=== PATIENT | female | born 1945 | race Caucasian/White ===

== ENCOUNTER 2020-06-07 15:23 | Observation (INO) | payer MEDICARE, BC ==
[~2020-06-07] VITALS: Ht 160 cm; Wt 63.5 kg
[2020-06-07] MEDS ORDERED: ASPIRIN 81 MG CHEW TAB PO ONE (15:30)
--- NOTE | 2020-06-07 15:48 | Emergency Department Note ---
History of Present Illnes History of Present Illness History of Present Illness This is a 74 year old female . Past Medical/Family History Physician Review I have reviewed the patient's past medical and family history. Any updates have been documented here. Physical Exam Physical Exam CONSTITUTIONAL HENT EYES NECK PULMONARY CARDIOVASCULAR GASTROINTESTINAL GENITOURINARY SKIN MUSCULOSKELETAL NEUROLOGICAL PSYCHOLOGICAL Assessment & Plan Medications in the ED Aspirin 81 mg PRN ONCE PO ; Start 06/07/20 at 15:30; Stop 06/07/20 at 15:33; Status DC CHARLES PURDY, Jun 07, 2020 15:48
--- NOTE | 2020-06-07 16:01 | Diagnostic Imaging Report ---
Examination: CT BRAIN WO CONTRAST History:Stroke. Comparison studies:None Technique: Axial images were obtained from the skull base to the vertex. Coronal and sagittal images reconstructed from the axial data. Dose modulation, iterative reconstruction, and/or weight based adjustment of the mA/kV was utilized to reduce the radiation dose to as low as reasonably achievable. Intravenous contrast: None Findings: Scalp: No abnormalities. Bones: No fractures, blastic or lytic lesions. Brain sulci: Appropriate for age. Ventricles: Normal in size and configuration. No hydrocephalus. Extra-axial space: No abnormalities. Parenchyma: No masses, hemorrhage, or acute or chronic cortical based vascular insults.. Sellar/suprasellar region: No abnormalities. Craniocervical junction: Patent foramen magnum. No Chiari one malformation. Incidental findings: Atherosclerotic calcification of the cavernous and supraclinoid internal carotid and V4 segments of the bilateral vertebral arteries. Impression: No acute intracranial abnormalities. Signed by: Dr. Karma Barnes M.D. on 06/07/2020 3:57 PM
--- OUTSIDE RECORDS SUMMARY | 2020-06-07 16:37 | XMS REPORT | Continuity of Care Document ---
Author Author [facility] Organization [facility] Address 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 Allergies, Adverse Reactions, Alerts Allergy Name Allergy Type Status Severity Reaction(s) Onset Date Inacti ve Date Treating Clinician Comments Source Penicillins DA Active U 2019-06-04 00:00:00 [facility] iodine DA Active U 2019-06-04 00:00:00 [facility] Penicillins DA Active U 2019-06-03 00:00:00 [facility] iodine DA Active U 2019-06-03 00:00:00 [facility] Penicillins DA Active [place] 2019-01-04 00:00:00 [facility] iodine DA Active [place] 2019-01-04 00:00:00 [facility] Penicillins DA Active U 2010-11-22 00:00:00 [facility] iodine DA Active U 2010-11-22 00:00:00 [facility] Medications This patient has no known medications. Procedures This patient has no known procedures. Results Test Description Test Time Test Comments Results Result Comments Source CT BRAIN WO 2020-06-07 15:53:00 [facility] [address] [address] Patient Name: JATINDER CODY MR #: [id number] : 1945 Age/Sex: 74/F Req #: [id number] Adm Physician: Ordered by: CHARLES PURDY DO Report #: [id number] Location: ER Room/Bed: Procedure: [id number] CT/CT BRAIN WO Exam Date: Exam Time: REPORT STATUS: Signed Examination: CT BRAIN WO CONTRAST History:Stroke. Comparison studies:None Technique: Axial images were obtained from the skull base to the vertex. Coronal and sagittal images reconstructed from the axial data. Dose modulation, iterative reconstruction, and/or weight based adjustment of the mA/kV was utilized to reduce the radiation dose to as low as reasonably achievable. Intravenous contrast: None Findings: Scalp: No abnormalities. Bones: No fractures, blastic or lytic lesions. Brain sulci: Appropriate for age. Ventricles: Normal in size and configuration. No hydrocephalus. Extra-axial space: No abnormalities. Parenchyma: No masses, hemorrhage, or acute or chronic cortical based vascular insults.. Sellar/suprasellar region: No abnormalities. Craniocervical junction: Patent foramen magnum. No Chiari one malformation. Incidental findings: Atherosclerotic calcification of the cavernous and supraclinoid internal carotid and V4 segments of the bilateral vertebral arteries. Impression: No acute intracranial abnormalities. Signed by: Dr. Karma Barnes M.D. on 06/07/2020 3:57 PM Dictated By: KARMA JAMA MD 56 Transcribed By: BOB on 06/07/201556 COPY TO: MAUREENCHARLES CASILLAS, DO - XR FLUORO FOR SPINE INJ 2019-06-05 09:50:00 P atient Name: JATINDER CODY Unit No: [id number] EXAMS: CPT CODE: [id number] XR FLUORO FOR SPINE INJ 34346 LUMBAR EPIRADICULAR INJECTION REFERRAL PHYSICIAN: Miladis Mccormack M.D. PREOPERATIVE DIAGNOSIS: Lumbar Radiculitis POSTOPERATIVE DIAGNOSIS: Lumbar disc degeneration with L3-4 disc displacement, L4-5 grade 1 spondylolisthesis, spinal stenosis and bilateral lower extremity radicular pain PROCEDURES PERFORMED: Fluoroscopically guided needle localization of the bilateral L4 and bilateral L5 spinal nerves with transforaminal epidurograms and epidural injection of local anesthetic and steroid. FINDINGS: Marked loss of disc space height is seen from L3 to S1. Moderate anterior epidural displacement seen across the L3-4 disc and grade 1 spondylolisthesis is seen at L4-5 with minimal disc displacement. Good flow seen through all foramen and across the L4-5 spondylolisthesis. Flow was somewhat limited in the bilateral L3-4 lateral recesses. Provocation with injection was negative. Anesthetic response was positive with the patient noting complete relief of her low back and radiating lower extremity pains. Preinjection VAS 7/10. Postinjection VAS 0/10. Steroid response pending follow-up. ESTIMATED BLOOD LOSS: Minimal ANESTHESIA: TIVA COMPLICATIONS: None DETAILS OF PROCEDURE: After obtaining stable vital signs, informed consent and IV access, with no contraindications, the patient was taken to the operating room and placed in a prone position with all extremities p added and appropriate monitors placed. The patient was sterilely prepped and draped over the lumbosacral spine. Using fluoroscopic visualization the insertion sites were marked for paravertebral approaches and using standard technique, a 25 gauge needle was advanced to the base of each pedicle without paresthesias. Isovue-300 contrast 0.2 mL of was injected incrementally with frequent negative aspirations to produce each epidurogram. There were no signs of intravascular or intrathecal uptake. Bupivicaine 0.75% 0.25 mL with lidocaine 4% 0.25 mL and Decadron 5 mg was then incrementally injected with frequent negative aspirations and again there were no signs of intravascular or intrathecal uptake. The needles were removed and the patient was taken to the PACU in good condition. at 0950 Reported and signed by: Misael Bonilla M.D. [facility] NAME: JATINDER CODY [address] [facility] PHYS: Misael Bell MD [place], [place] [address] : 1945 AGE: 73 SEX: F LOC: [place] PHONE #: [phone] EXAM DATE: 06/04/2019 STATUS: [facility] FAX #: [phone] RAD #: D/C DT PAGE 1 Signed Report (CONTINUED) Patient Name: JATINDER CODY Unit No: [id number] EXAMS: CPT CODE: [id number] XR FLUORO FOR SPINE INJ 73151 <Continued> CC: Technologist: Petrona Jones(R) Transcribed D/ (9176) Rolf [facility] NAME: JATINDER CODY [address] [facility] PHYS: Misael Bell MD [place], [place] [address] : 1945 AGE: 73 SEX: F LOC: [place] PHONE #: [phone] EXAM DATE: 06/04/2019 STATUS: [facility] FAX #: [phone] RAD #: D/C DT PAGE 2 Signed Report Patient Name: JATINDER CODY Unit No: [id number] EXAMS: CPT CODE: [id number] XR FLUORO FOR SPINE INJ 49152 <Continued> Orig Print D/T: S: 06/05/2019 (8586) [facility] NAME: JATINDER CODY [address] [facility] [address] PHYS: Misael Bell MD [place] [id number] : 1945 AGE: 73 SEX: F LOC: [place] PHONE #: [phone] EXAM DATE: 06/04/2019 STATUS: [facility] FAX #: [phone] RAD #: D/C DT PAGE 3 Signed Report - NM BONE WHOLE BODY 2019-05-20 15:14:00 FAX: Ellen RyderksSera [phone] [place]: St: REG FAX: Bryce Prasad [phone] Name: ANA LUISA CODYES [facility] : 1945 Age/S: 73/F [address] [place] [address] Blvd Unit #: [id number] Loc: [place] [address] Phys: Bryce Mccormack MD Acct: [id number] Dis Date: Status: REG CLI PHONE #: [phone] Exam Date: 05/20/2019 1449 FAX #: [phone] Reason: M47.892 LOW BACK PAIN, SPONDYLOSIS EXAMS: CPT CODE: [id number] MT BONE WHOLE BODY 68270 Nuclear medicine whole-body bone scan 05/20/2019 HISTORY: Low back pain PROCEDURE: After the intravenous injection of 25 mCi of technetium 99m HDP, whole body anterior and posterior projection imaging was performed followed by spot images of the spine in multiple planes. No prior bone scans are available for comparison. Comparison is made to MRI performed 05/06/2019. FINDINGS: Physiologic activity within the kidneys and urinary bladder. Mild uptake within the left 1st toe is noted. There is increased activity within the L1 vertebral body. No other area of increased activity is identified. IMPRESSION: 1. Increased activity within L1 vertebral body. This most likely represents an recent (acute or subacute) Schmorl's node. Primary or secondary neoplasm is considered less likely 2. Increased activity within left 1st toe may represent degenerative change or gout. SL: [id number] at 1514 Reported and signed by: Abhijeet Izquierdo M.D. CC: Sera Tobias DO; Ioana Mccormack M.D. Technologist: RT Whit(Wili)([facility]) Trnscrd Date/Time/By: 05/20/2019 (151) : By: [email or web address] Orig Print D/T: S: 05/20/2019 (1515) PAGE 1 Signed Report - MRI L-SPINE W/O CONT 2019-05-07 10:09:00 Tiffanie ent Name: JATINDER CODY Unit No: [id number] EXAMS: CPT CODE: [id number] MRI L-SPINE W/O CONT 20332 MRI OF THE LUMBAR SPINE: DIAGNOSIS: 1. At L1-2, moderate disc degeneration. 2 mm disc bulge. Mild central canal stenosis. Moderate foraminal stenosis. There is a lesion which involves the superior endplate of L1 which was not seen on the previous examination dated October 20, 2016. The lesion is well- circumscribed and there is associated partial cortical disruption of the L1 superior endplate. This is low signal on T1 and T2-weighted sequences and focally high signal on STIR sequence. Findings are suggestive of an acute or subacute Schmorl's node. An atypical metastatic lesion cannot entirely be excluded on this exam. Correlation whole-body nuclear bone scan is recommended. A chronic Schmorl's node is present inferior endplate of L3 which was seen on the previous exam. 2. At L2-3, mild disc degeneration. 2 mm disc bulge. Mild to moderate central canal stenosis. Moderate foraminal stenosis. 3. At L3-4, moderate to marked disc degeneration. Moderate central canal stenosis. Moderate left facet and mild right facet arthropathy. Moderate to marked left foraminal and moderate right foraminal stenosis. 4. At L4-5, marked disc degeneration. Grade 1 spondylolisthesis of L4 and L5. Moderate hypertrophic central canal stenosis. There is marked left facet and moderate to marked right facet arthropathy. Mild to moderate hypertrophy ligamenta flava. Moderate foraminal stenosis. 5. At L5-S1, marked disc degeneration. 2 mm disc bulge. Mild central canal stenosis. Moderate facet arthropathy. Moderate right foraminal mild to moderate left foraminal stenosis. COMMENT: COMPARISON: No prior exams available. Sagittal T1, T2 and STIR and axial T1 and T2-weighted sequences are obtained of the lumbar spine. Findings involving the L1 vertebral body as described. Recommendations are as above. The conus is in the expected location. at 1009 Reported and signed by: María Elena Payton MD CC: Miladis Mccormack M.D. Technologist: Karen Mata(R) Transcribed D/ (1009) CharlesGVG [facility] NAME: JATINDER CODY [address] [facility] PHYS: Bryce Cervantes MD : 1945 AGE: 73 SEX: F [place] [address] LOC: Y.MRI PHONE #: [phone] EXAM DATE: 05/06/2019 STATUS: [facility] CLI FAX #: [phone] RAD #: D/C DT PAGE 1 Signed Report Patient Name: JATINDER CODY Unit No: [id number] EXAMS: CPT CODE: [id number] MRI L-SPINE W/O CONT 28894 <Continued> Orig Print D/T: S: 05/07/2019 (1012) [facility] NAME: JATINDER CODY [address] [facility] PHYS: Bryce Cervantes MD : 1945 AGE: 73 SEX: F [place] [address] LOC: Y.MRI PHONE #: [phone] EXAM DATE: 05/06/2019 STATUS: [facility] CLI FAX #: [phone] RAD #: D/C DT PAGE 2 Signed Report SCR MAMM BILATERAL AYLIN CAD DIGITAL 2019-03-18 10:13:22 - SCR MAMM BILATERAL AYLIN CAD DIGITALBILATERAL DIGITAL SCREENING MAMMOGRAM 3D/2D WITH CAD: 03/15/2019CLINICAL: Asymptomatic. Digital breast tomosynthesis was performed in addition to routine CC and MLO views. Current mammographic images were evaluated by either a Nubisio M-Vu or a BandPage ImageChecker CAD (computer aided detection system). Comparison is made to exams dated 06/30/2009 mammogram, 05/13 mammogram, and 05/28/2007 mammogram - [facility]-. There are scattered fibroglandular tissues in both breasts. There are benign vascular calcifications in both breasts. No suspicious mass, architectural distortion, malignant type calcification, or lymph node abnormality detected. Breast architecture is stable compared to prior exams.IMPRESSION: BENIGNThere is no mammographic evidence of malignancy. Resume annual screening mammography in one year. Julio Batista M.D. 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 At L1-2 there is no evidence for disc bulge or herniation, bony canal or foraminal stenosis. 2. At L2-3 there is no evidence for disc bulge or herniation, bony canal or foraminal stenosis. 3. At L3-4 there is endplate spur formation and 2 mm of broad based disc protrusion with mild bilateral foraminal narrowing. There is mild to moderate canal stenosis with facet hypertrophy. 4. At L4-5 there is a degenerative grade 1 spondylolisthesis without a focal disc abnormality. There is moderate bilateral foraminal narrowing and moderate canal stenosis with facet hypertrophy. 5. At L5-S1 there is 6 mm of extruded right posterior lateral disc herniation impinging on the right S1 nerve root. No canal stenosis is seen. Mild bilateral foraminal narrowing is present. COMMENT: Scans were performed in the sagittal and axial planes utilizing T1, T2 and inversion recovery images. Endplate degenerative changes are seen from L2 to S1. All discs are degenerated. Disc configurations are as described. Spondylitic changes are as noted. The conus is in the expected location. The description these findings assumes a normal count of 5 lumbar type vertebra. at 1534 Reported and signed by: Jhonny Zhang MD CC: Miladis Mccormack M.D. Technologist: Karen Pepe(R) Transcribed D/ (2924) tSILVIANO.[facility] NAME: ANA LUISA CODY [address] [facility] PHYS: Bryce Cervantes MD : 1945 AGE: 65 SEX: F [place] [address] LOC: [facility] PHONE #: [phone] EXAM DATE: 11/22/2010 STATUS: [facility] FAX #: [phone] RAD #: [id number] D/C DT PAGE 1 Signed Report Patient Name: ANA LUISA CODY Unit No: [id number] EXAMS: CPT CODE: [id number] MRI L-SPINE W/O CONT 14484 <Continued> Orig Print D/T: S: 11/25/2010 (1123) [facility] NAME: ANA LUISA CODY [address] [facility] PHYS: Bryce Cervantes MD : 1945 AGE: 65 SEX: F [place] [address] LOC: [facility] PHONE #: [phone] EXAM DATE: 11/22/2010 STATUS: [facility] FAX #: [phone] RAD #: [id number] D/C DT PAGE 2 Signed Report - XR CHEST 1 V 2009-08-10 18:35:00 FAX: Rosenda Maharaj MD [phone] [place]: B St: SAMIRK -- Name: ANA LUISA CODY [facility] : 1945 Age/S: 63/F Freddie Casas Unit #: [id number] Loc: [facility] [place] [address] Phys: Rosenda Maharaj MD Acct: [id number] Dis Date: Status: UNK PHONE #: [phone] Exam Date: 08/10/2009 1415 FAX #: [phone] Reason: BILATERAL SHOULDER ACHING AND BP IS ELEV EXAMS: CPT CODE: [id number] XR CHEST 1 V 89558 Portable chest compared to exam 04/17/2008. Grossly clear mildly hyperinflated lungs and pleural spaces. Borderline normal heart size. Mild aortic ectas ia. Unremarkable bony thorax. IMPRESSION: No acute cardiopulmonary pathology. at 1835 Reported and signed by: Vikash Young M.D. CC: Rosenda Maharaj MD Technologist: Tomeka Juarez [facility] Date/Time/By: 08/10/2009 (183) : By: [email or web address] Orig Print D/T: S: 08/10/2009 (183) PAGE 1 Signed Report - CT CHEST W/O CONTRAST 2009-08-10 14:53:00 Na me: ANA LUISA CODY [facility] : 1945 Age/S: 63 / F Freddie Casas Unit #: [id number] Loc: [place] [address] Phys: Rosenda Maharaj MD Acct: [id number] Dis Date: Status: UNK PHONE #: [phone] Exam Date: 08/10/2009 1405 FAX #: [phone] Reason: BP ELVATED/SHOULDER PAIN EXAMS: CPT CODE: [id number] CT CHEST W/O CONTRAST 05051 HISTORY: Hypertension, shoulder pain. FINDINGS: Biapical mild scarring greater on the right. No acute infiltrate, pneumothorax, or pleural effusion. Coronary artery and aortic atherosclerosis without focal aneurysm. No appreciable adenopathy or pericardial effusion; evaluation limited by lack of intravenous enhancement. Small hiatus hernia. Otherwise grossly unremarkable upper abdomen. Degenerative changes in the spine. Right thyroid calcification noted. IMPRESSION: 1. No acute intra thoracic pathology, evaluation limited by lack of enhancement. 2. Coronary and aortic atherosclerosis. 3. Small hiatus hernia. at 1456 Reported and signed by: Vikash Young M.D. CC: Rosenda Maharaj MD Technologist:RANJAN KWON(R)(CT); W CTDI: DLP: Trnscb Date/Time: 08/10/2009 (0866) [email or web address] Orig Print D/T: S: 08/10/2009 (8904) PAGE 1 Signed Report - XR ABDOMEN AP/OBL/CONE 2008-04-21 14:04:00 N paulo: ANA LUISA CODY [facility] : 1945 Age/S:62 /F [address] [facility] Unit#:[id number] Loc: [place] [address] Phys: Makayla Byrd MD Dis Date: PHONE #: [phone] Status: [facility] FAX #: [phone] Exam Date: 04/21/2008 Reason: ABD PAIN EXAMS: CPT CODE: [id number] XR ABDOMEN AP/OBL/CONE 88064 COMPARISON: 04/17/2008 FINDINGS: Nonspecific intestinal gas pattern. No organomegaly or mass. Bilateral pelvic calcifications consistent with phleboliths are unchanged. IMPRESSION: No acute abdominal findings . at 1406 Reported and signed by: Vikash Young M.D. CC: Makayla Byrd Technologist: Bia Chang RT(R),CT Trnscrpt Data: 04/21/2008 (1406) RAD.VR Orig Print D/T: S: 04/21/2008 (0050) PAGE 1 Signed Report - US ABDOMEN COMPLETE 2008-04-21 09:11:00 Name : ANA LUISA CODY [facility] : 1945 Age/S: 62 / F [address] [facility] Unit #: [id number] Loc: [place] [address] Phys: Makayla Byrd MD Acct: [id number] Dis Date: Status: UNK PHONE #: [phone] Exam Date: 04/21/200822 FAX #: [phone] Reason: ABDOMINAL PAIN EXAMS: CPT CODE: [id number] US ABDOMEN COMPLETE 11241 Reason for exam: Abdominal pain FINDINGS: The liver is unremarkable. There is no evidence of focal mass identified. The pancreas is within normal limits. The right kidney measures 10.9 x 4.4 cm. The left kidney measures 11.3 x 5.3 cm. There is no evidence of hydronephrosis. There is no evidence of nephrolithiasis. There is no evidence of renal mass. The spleen measures 10.6 cm. The gallbladder is well-distended without evidence of gallstone. The common bile duct measures 0.3 cm. There is no evidence of ascites. IMPRESSION: NORMAL ABDOMEN. at 0913 Reported and signed by: Jose Jesus M.D. CC: Makayla Byrd Technologist: CHUCKY ROSALES Trnksb Date/Time: 04/21/2008 (0913) RAD.VR Orig Print D/T: S: 04/21/2008 (0914) Probe: PAGE 1 Signed Report - XR ABDOMEN AP/OBL/CONE 2008-04-17 15:13:00 N paulo: ANA LUISA CODY [facility] : 1945 Age/S:62 /F [address] [facility] Unit#:[id number] Loc: [place] [address] Phys: Makayla Byrd MD Dis Date: PHONE #: [phone] Status: UNK FAX #: [phone] Exam Date: 04/17/2008 Reason: EPIGASTRIC ABDOMINAL PAIN EXAMS: CPT CODE: [id number] XR ABDOMEN AP/OBL/CONE 33406 The intestinal gas pattern is normal. Nonspecific pelvic calcifications are probably phleboliths. No organomegaly or mass or free air is present. Visualized lung bases are grossly clear. IMPRESSION: No acute abdominal findings. at 1514 Reported and signed by: Vikash Young M.D. CC: Makayla Byrd Technologist: Rachel Valentin RT(R),CT Trnscrpt Data: 04/17/2008 (2304) RAD.VR Orig Print D/T: S: 04/17/2008 (3268) PAGE 1 Signed Report - XR CHEST 2 V 2008-04-17 15:12:00 Name: ANA LUISA SINGH [facility] : 1945 Age/S:62 /F [address] [facility] Unit#:[id number] Loc: [facility] [address] Phys: Makayla Byrd MD Dis Date: PHONE #: [phone] Status: UNK FAX #: [phone] Exam Date: 04/17/2008 Reason: EPIGASTRIC ABDOMINAL PAIN EXAMS: CPT CODE: [id number] XR CHEST 2 V 17390 COMPARISON: none FINDINGS: Lungs and pleural spaces are grossly clear but mildly hyperinflated. Cardiomediastinal silhouette is within normal limits. Unremarkable bony thorax. IMPRESSION: Hyperinflated lungs. at 1512 Reported and signed by: Vikash Young M.D. CC: Makayla Byrd Technologist: Rachel Valentin RT(R),CT Trnscrpt Data: 04/17/2008 (2972) RAD.VR Orig Print D/T: S: 04/17/2008 (2358) PAGE 1 Signed Report - MRI UP JNT W/O CONT LT 2007-12-07 16:48:00 Pa [place] Name: ANA LUISA CODY Unit No: [id number] EXAMS: CPT CODE: [id number] [place] JNT W/[place] [address] MRI OF THE LEFT SHOULDER, 12/07/2007: DIAGNOSIS: 1. There is a complete or near complete full thickness tear of the supraspinatus tendon with 1.5 cm of retraction. No muscle belly atrophy. 2. Partial thickness tear of the infraspinatus tendon. 3. 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 4. Abnormal linear signal is seen within the supraspinatus tendon. The findings are suggestive of a SLAP tear of the superior labrum. Please correlate with the clinical examination. This may be further evaluated with MRI post arthrography if clinically warranted. COMMENT: Paracoronal T1 and fat saturation T2, parasagittal T2, axial T1 and fat saturation spin density sequences are obtained of the left shoulder. Supraspinatus tendon tear as described above. Subtle partial thickness tear of the infraspinatus te ndon. The subscapularis and teres minor tendons are within normal limits. 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 The findings suggest a SLAP tear of the superior labrum. The biceps tendon is intact. The bony structures are within normal limits in signal. There is a physiologic amount of fluid seen within the joint space. [id number] at 1239 Reported by: Anil Payton MD Signed by: María Elena Payton MD CC: Toney James MD Technologist: Karen Pepe(R) Transcribed D/ (0914) Anastasia.NIURKA [facility] NAME: ANA LUISA CODY [address] [facility] PHYS: TERELLWTSteve - Toney James : 1945 AGE: 62 SEX: F [place], [place] [address] LOC: UNK PHONE #: [phone] EXAM DATE: 12/07/2007 STATUS: UNK FAX #: [phone] RAD #: [id number] D/C DT PAGE 1 Signed Report Patient Name: ANA LUISA CODY Unit No: [id number] EXAMS: CPT CODE: [id number] [place] JNT W/[place] [address] <Continued> Orig Print D/T: S: 12/11/2007 (0530) [facility] NAME: ANA LUISA CODY [address] [facility] PHYS: Toney Menjivar : 1945 AGE: 62 SEX: F [place], [place] [address] LOC: [facility] PHONE #: [phone] EXAM DATE: 12/07/2007 STATUS: [facility] FAX #: [phone] RAD #: [id number] D/C DT PAGE 2 Signed Report - MAMMOGM [facility] BI 2004-07-17 09:27:00 FAX: Makayla Gutierrez MD [phone] [place]: St: [facility] FAX: Raymundo Gorman MD [phone] Name: ANA LUISA CODY [facility] : 1945 Age[facility]S: 58/[facility] #: [id number] Loc: [place] [address] Phys: Raymundo Madrigal MD Acct: [id number] Dis Date: Status: UNK PHONE #: [phone] Exam Date: 07/16/2004 1220 FAX #: [phone] Reason: ILATERAL EXAMS: CPT CODE: [id number] [place] [address] DICTATED: 07/17/04926 HISTORY: BILATERAL FILM SCREEN MAMMOGRAPHY, 07/16/04: Bilateral film screen mammography compared to examination of 01/29/03, 12/10/01 and 07/24/00. Bilateral film screen mammography demonstrating mixed dense fatty fibroglandular tissue unchanged in pattern going back to the examination of 1999. No spiculated masses, clustered group of microcalcifications or asymmetric density is noted. No skin thickening or nipple retraction is noted. IMPRESSION: 1. NO SPICULATED MASSES, CLUSTERED GROUP OF MICROCALCIFICATIONS OR ASYMMETRIC DENSITIES. 2. ROUTINE ONE YEAR FOLLOW-UP IS RECOMMENDED. NOTE: 1. A negative x-ray report should not delay biopsy if a dominant or clinically suspicious palpable mass is present. 2. Dense breasts may obscure an underlying neoplasm. 3. False/positive reports may exceed 10%. Result Code: Bi-Rads 3 Follow-up: 12 months /4353 at 1031 Reported and signed by: Noel Pineda M.D. CC: Makayla Byrd; Raymundo Madrigal MD Technologist: RT SEBASTIÁN(Wili)(M) Trnscrd Date/Time/By: 07/17/2004 (8340) : By: Anastasia.[email or web address] Orig Print D/T: S: 07/19/2004 (4464) PAGE 1 Signed Report - [facility] 2003-01-30 12:52:00 FAX: Raymundo Gorman MD [phone] [place]: St: [facility] -- Name: ANAL U[facility] : 1945 Age/S: 57/F [address] [facility] Unit #: [id number] Loc: [place] [address] Phys: Raymundo Madrigal MD Acct: [id number] Dis Date: Status: UNK PHONE #: [phone] Exam Date: 01/29/2003924 FAX #: [phone] Reason: ILATERAL EXAMS: CPT CODE: [id number] [facility] [id number] DICTATED: 01/30/03, 1252 HISTORY: BILATERAL FILM SCREEN MAMMOGRAPHY, 01/29/03: Bilateral film screen mammography compared to exam ination of 12/10/01 and 07/24/00 as well as 05/04/99. Bilateral film screen mammography demonstrating mixed fatty and fibroglandular tissue unchanged in pattern when compared to the previous three studies. No spiculated masses, clustered group of microcalcifications or asymmetric densities are noted. No skin thickening or nipple retraction is noted. IMPRESSION: 1. NO SPICULATED MASSES, CLUSTERED GROUP OF MICROCALCIFICATIONS OR ASYMMETRIC DENSITIES. 2. ROUTINE ONE YEAR FOLLOW-UP IS RECOMMENDED. NOTE: 1. A negative x-ray report should not delay biopsy if a dominant or clinically suspicious palpable mass is present. 2. Dense breasts may obscure an underlying neoplasm. 3. False/positive reports may exceed 10%. Result Code: Bi-Rads 3 Follow-up: 12 months /69827 at 1433 Reported and signed by: Noel Pineda M.D. CC: Raymundo Madrigal MD Technologist: RT SEBASTIÁN(Wili)(M) [facility] Date/Time/By: 01/30/2003 (1409) : By: [email or web address] Orig Print D/T: (3015) S: 01/31/2003 (2931) PAGE 1 [facility] 2001-12-25 14:23:00 FAX: Raymundo Gorman MD [phone] [place]: St: [facility] -- Name: [facility] : 1945 Age/S: 56/F [address] Unit #: [id number] Loc: [place] [address] Phys: Raymundo Madrigal MD Acct: [id number] Dis Date: Status: UNK PHONE #: [phone] Exam Date: 12/25/2001 1423 FAX #: [phone] Reason: L EXAMS: CPT CODE: [id number] [facility] DICTATED: 12/25/01: 1503 HOURS HISTORY: LEFT BREAST CALCIFICATIONS LEFT UNILATERAL CONE COMPRESSION MAMMOGRAM, 12/25/01: CPT 51792 Magnification cone compression images of the left breast were obtained for further evaluation of clustered microcalcifications in the lateral subareolar region on screening mammography performed 01/09/02. These calcifications are very smooth in contour and uniform in size and shape with no associated mass or architectural distortion. IMPRESSION: BENIGN-APPEARING CALCIFICATIONS IN THE LEFT BREAST. NO FURTHER EVALUATION RECOMMENDED AT THIS TIME. A SCREENING MAMMOGRAPHY SCHEDULE SHOULD BE RESUMED. Result Code: Bi-Rads 2 Follow-up: 12 months WC/cw/81557 at 0925 Reported and signed by: Vikash Young M.D. CC: Raymundo Madrigal MD Technologist: RT SEBASTIÁN(Wili)(M) Trnscrd Date/Time/By: 12/26/2001 (0710) : By: RACHELE/[email or web address] PAGE 1 Signed [facility] 2001-12-10 11:16:00 FAX: [place]: St: [facility] FAX: Makayla Gutierrez MD [phone] Name: [facility] : 1945 Age/S: 56/F [address] Unit #: [id number] Loc: [place] [address] Phys: RAYMUNDO MARTI Acct: [id number] Dis Date: Status: UNK PHONE #: [phone] Exam Date: 12/10/2001 1116 FAX #: [phone] Reason: EXAMS: CPT CODE: [id number] [place] [id number] DICTATED: 12/11/01; 1620 HOURS HISTORY: SCREENING MAMMOGRAM BILATERAL FILM SCREEN MAMMOGRAM, 12/10/01 (COMPARISON IS MADE TO EXAMS DONE ON 07/24/00, 05/04/99, 05/11/98): 1. Moderate diffuse fibroglandular changes and adenosis bilaterally without discrete, dominant mass in either breast. 2. Evidence of multiple clustered microcalcifications in the upper outer quadrant of the left breast near the retroareolar region which has slightly increased in number during the time interval and should undergo cone compression views for further characterization. CONCLUSION: MULTIPLE CLUSTERED MICROCALCIFICATIONS IN THE UPPER OUTER QUADRANT OF THE LEFT BREAST NEAR THE RETROAREOLAR REGION WHICH HAVE INCREASED IN NUMBER DURING THE TIME INTERVAL AND SHOULD UNDERGO CONE COMPRESSION VIEWS FOR FURTHER CHARACTERIZATION. NOTE: 1. A negative x-ray report should not delay biopsy if a dominant or clinically suspicious palpable mass is present. 2. Dense breasts may obscure an underlying neoplasm. 3. False/positive reports may exceed 10%. Result Code: Bi-Rads 0 Follow-up: JORGE PUGH/erum/33436 at 1701 Reported and signed by: Elizabeth Yousif M.D. CC: Makayla Matos Technologist: RT SEBASTIÁN(Wili)(Mey) Trnscrd Date/Time/By: 12/12/2001 (1524) : By: RACHELE/Mirian PAGE 1 Signed Report MRI BRAIN WO [place] [address] Patient Name: JATINDER CODY MR #: [id number] : 1945 Age/Sex: 72/F Req #: [id number] Adm Physician: Ordered by: SERA TOBIAS DO Report #: [id number] Location: [facility] Room/Bed: Procedure: [id number] MRI/MRI BRAIN WO Exam Date: Exam Time: REPORT STATUS: Signed EXAMINATION: MRI of the brain without contrast. HISTORY: Acute onset headaches COMPARISON: Brain MRI on 04/02/2012 TECHNIQUE: Sagittal T2; axial DWI, T2, FLAIR, T1-IR, T2 gradient echo; coronal FLAIR. IMAGE QUALITY: Adequate. FINDINGS: Parenchyma: 1. Few scattered white matter T2 and FLAIR hyperintense foci, most likely nonspecific chronic microvascular ischemic changes. 2. Small about 2 mm DWI hyperintense focus in the right middle frontal gyrus without ADC correlation likely corresponds to a small chronic lacunar infarct. Otherwise no abnormal signal intensity in the brain parenchyma. 3. No mass, hemorrhage, acute or chronic infarcts. Skull: Unremarkable. Vessels: Expected flow voids present in the major arteries and dural sinuses. Extra-axial spaces: No abnormal signa l intensity or mass effect. Brain volume: Within normal limits for age. Ventricles: No hydrocephalus or displacement. Foramen magnum: Unremarkable. Sella: Unremarkable. Paranasal / mastoid sinuses: No significant inflammatory disease. IMPRESSION: 1. No intracranial mass, hydrocephalus or acute infarct. 2. Mild chronic microvascular ischemic changes as detailed above. Signed by: Dr. Yessica Rodriguez M.D. on 03/02/2018 3:57 PM Dictated By: YESSICA RODRIGUEZ MD 1793 Transcribed By: BOB on 03/02/18 7898 COPY TO: SERA TOBIAS DO
--- OUTSIDE RECORDS SUMMARY | 2020-06-07 16:44 | XMS REPORT | Continuity of Care Document ---
Author Author [facility] Organization [facility] Address [address] [place] [address] Phone Unavailable Care Team Providers Care Graduate Internship Name Role Phone Shannan PURDY Attphyshannan Unavailable SERA TOBIAS Unavailable Payers Payer Name Policy Type Policy Number Effective Date Expiration Date S ource Problems This patient has no known problems. Allergies, Adverse Reactions, Alerts Allergy Name Allergy Type Status Severity Reaction(s) Onset Date Inacti ve Date Treating Clinician Comments Source Penicillins DA Active U 2019-06-04 00:00:00 [facility] iodine DA Active U 2019-06-04 00:00:00 [facility] Penicillins DA Active U 2019-06-03 00:00:00 [facility] iodine DA Active U 2019-06-03 00:00:00 [facility] Penicillins DA Active NM 2019-01-04 00:00:00 [facility] iodine DA Active NM 2019-01-04 00:00:00 [facility] Penicillins DA Active U 2010-11-22 00:00:00 [facility] iodine DA Active U 2010-11-22 00:00:00 [facility] Medications This patient has no known medications. Procedures This patient has no known procedures. Results Test Description Test Time Test Comments Results Result Comments Source CT BRAIN WO 2020-06-07 15:53:00 [facility] [address] [address] Patient Name: JATINDER CODY MR #: [id number] : 1945 Age/Sex: 74/F Req #: [id number] Adm Physician: Ordered by: CHARLES PURDY DO Report #: [id number] Location: ER Room/Bed: Procedure: [id number] CT/CT BRAIN WO Exam Date: Exam Time: [...] No acute intracranial abnormalities. Signed by: Dr. Jose D Barnes M.D. on 06/07/2020 3:57 PM Dictated By: JOSE D JAMA MD 56 Transcribed By: BOB on 06/07/201556 COPY TO: MAUREENEMELYWiliCHARLES, DO - XR FLUORO FOR SPINE INJ 2019-06-05 09:50:00 P atient Name: JATINDER CODY Unit No: [id number] EXAMS: CPT CODE: [id number] XR FLUORO FOR SPINE INJ 79421 LUMBAR EPIRADICULAR INJECTION REFERRAL PHYSICIAN: Miladis Mccormack [...] Reported and signed by: Misael Bonilla M.D. [facility] NAME: JATINDER CODY [address] [facility] [address] PHYS: Misael Bell MD [place], [place] [address] : 1945 AGE: 73 SEX: F LOC: [place] PHONE #: [phone] EXAM DATE: 06/04/2019 STATUS: [facility] FAX #: [phone] RAD #: D/C DT PAGE 1 Signed Report (CONTINUED) Patient Name: JATINDER CODY Unit No: [id number] EXAMS: CPT CODE: [id number] XR FLUORO FOR SPINE INJ 52660 <Continued> CC: Technologist: Petrona Jones(R) Transcribed D/ (2896) Rolf [facility] NAME: JATINDER CODY [address] [facility] PHYS: Misael Bell MD [place], [place] [address] : 1945 AGE: 73 SEX: F LOC: [place] PHONE #: [phone] EXAM DATE: 06/04/2019 STATUS: [facility] FAX #: [phone] RAD #: D/C DT PAGE 2 Signed Report Patient Name: JATINDER CODY Unit No: [id number] EXAMS: CPT CODE: [id number] XR FLUORO FOR SPINE INJ 97367 <Continued> Orig Print D/T: S: 06/05/2019 (5942) [facility] NAME: JATINDER CODY [address] [facility] Main PHYS: Misael Bell MD [place], [place] [address] : 1945 AGE: 73 SEX: F LOC: [place] PHONE #: [phone] EXAM DATE: 06/04/2019 STATUS: [facility] FAX #: [phone] RAD #: D/C DT PAGE 3 Signed Report - NM BONE WHOLE BODY 2019-05-20 15:14:00 FAX: Sera Patel [phone] [place]: St: REG FAX: Bryce Prasad [phone] Name: ANA LUISA CODY [facility] : 1945 Age/S: 73/F [address] [place] [address] Unit #: [id number] Loc: [place] [address] Phys: Bryce Mccormack MD Acct: [id number] Dis Date: Status: REG CLI PHONE #: [phone] Exam Date: 05/20/2019 1449 FAX #: [phone] Reason: M47.892 LOW BACK PAIN, SPONDYLOSIS EXAMS: CPT CODE: [id number] NM BONE WHOLE BODY 25394 Nuclear medicine whole-body bone scan 05/20/2019 HISTORY: [...] may represent degenerative change or gout. SL: [id number] at 1514 Reported and signed by: Abhijeet Izquierdo M.D. CC: Sera Tobias DO; Ioana Mccormack M.D. Technologist: TARUN Sherman)([facility]) Trnscrd Date/Time/By: 05/20/2019 (390) : By: [email or web address] Orig Print D/T: S: 05/20/2019 (5408) PAGE 1 Signed Report - MRI L-SPINE W/O CONT 2019-05-07 10:09:00 Tiffanie ent Name: JATINDER CODY Unit No: [id number] EXAMS: CPT CODE: [id number] MRI L-SPINE W/O CONT 99696 MRI OF THE LUMBAR SPINE: DIAGNOSIS: 1. [...] Mccormack M.D. Technologist: Karen Mata(R) Transcribed D/ (1000) CharlesGVG [facility] NAME: JATINDER CODY [address] [facility] PHYS: Bryce Cervantes MD : 1945 AGE: 73 SEX: F [place] [address] LOC: Y.MRI PHONE #: [phone] EXAM DATE: 05/06/2019 STATUS: [facility] CLI FAX #: [phone] RAD #: D/C DT PAGE 1 Signed Report Patient Name: JATINDER CODY Unit No: [id number] EXAMS: CPT CODE: [id number] MRI L-SPINE W/O CONT 44186 <Continued> Orig Print D/T: S: 05/07/2019 (1012) [facility] NAME: JATINDER CODY [address] [facility] PHYS: Bryce Cervantes MD : 1945 AGE: 73 SEX: F [address] [address] LOC: Y.MRI PHONE #: [phone] EXAM DATE: 05/06/2019 STATUS: [facility] CLI FAX #: [phone] RAD #: D/C DT PAGE 2 Signed Report SCR MAMM BILATERAL AYLIN CAD DIGITAL 2019-03-18 10:13:22 - SCR MAMM BILATERAL AYLIN CAD DIGITALBILATERAL DIGITAL SCREENING MAMMOGRAM 3D/2D WITH CAD: 03/15/2019CLINICAL: Asymptomatic. Digital breast tomosynthesis was performed in addition to routine CC and MLO views. Current mammographic images were evaluated by either a YuMe M-Vu or a Looker ImageChecker CAD (computer aided detection system). Comparison is made to exams dated 06/30/2009 mammogram, 05/13 mammogram, and 05/28/2007 mammogram - [facility]-. There are scattered fibroglandular tissues in both breasts. There are benign vascular calcifications in both breasts. No suspicious mass, architectural distortion, malignant type calcification, or lymph node abnormality detected. Breast architecture is stable compared to prior exams.IMPRESSION: BENIGNThere is no mammographic evidence of malignancy. Resume annual screening mammography in one year. Julio stratton/merry:03/18/2019 10:13:22 Monogram And Letter Paster: Amira JORDAN, [facility]-letter sent: BIRADS 1-2 Normal Mammogram BI-RADS: 2 Benign - MRI L-SPINE W/O CONT 2010-11-22 15:32:00 [place]iff[place] ent Name: ANA LUISA CODY Unit No: [id number] EXAMS: CPT CODE: [id number] MRI L-SPINE W/O CONT 71041 DIAGNOSIS: 1. At L1-2 there is no [...] Mccormack M.D. Technologist: Karen Pepe(R) Transcribed D/ (1534) Wendie [facility] NAME: ANA LUISA CODY [address] [facility] PHYS: Bryce Cervantes MD : 1945 AGE: 65 SEX: F [place] [address] [facility] PHONE #: [phone] EXAM DATE: 11/22/2010 [facility]US[facility] FAX #: [phone] RAD #: [id number] D/C DT PAGE 1 Signed Report Patient Name: ESCOBARANA LUISA QUESADA Unit No: [id number] EXAMS: CPT CODE: [id number] MRI L-SPINE W/O CONT 19488 <Continued> Orig Print D/T: S: 11/25/2010 (1123) [facility] NAME: ESCOBARANA LUISA PERALTA [address] [facility] PHYS: Bryce Cervantes MD : 1945 AGE: 65 SEX: F [place] [address] [facility] PHONE #: [phone] EXAM DATE: 11/22/2010 [facility] FAX #: [phone] RAD #: [id number] D/C DT PAGE 2 Signed Report - XR CHEST 1 V 2009-08-10 18:35:00 FAX: Rosenda Maharaj MD [phone] [place]: B St: [place] -- Name: ANA LUISA CODY [facility] : 1945 Age/S: 63/F [address] Unit #: [id number] Loc: [place] [address] Phys: Rosenda Maharaj MD Acct: [id number] Dis Date: Status: UNK PHONE #: [phone] Exam Date: 08/10/2009 1415 FAX #: [phone] Reason: BILATERAL SHOULDER ACHING AND BP IS ELEV EXAMS: CPT CODE: [id number] XR CHEST 1 V 73966 Portable chest compared to exam 04/17/2008. Grossly clear mildly hyperinflated lungs and pleural spaces. Borderline normal heart size. Mild aortic ectas ia. Unremarkable bony thorax. IMPRESSION: No acute cardiopulmonary pathology. at 1835 Reported and signed by: Vikash Young M.D. CC: Rosenda Maharaj MD Technologist: Tomeka Juarez [facility] Date/Time/By: 08/10/2009 (183) : By: [email or web address] Orig Print D/T: S: 08/10/2009 (1835) PAGE 1 Signed Report - CT CHEST W/O CONTRAST 2009-08-10 14:53:00 Na me: ANA LUISA CODY [facility] : 1945 Age/S: 63 / F [address] Unit #: [id number] Loc: [place] [address] Phys: Rosenda Maharaj MD Acct: [id number] Dis Date: Status: UNK PHONE #: [phone] Exam Date: 08/10/2009 1405 FAX #: [phone] Reason: BP ELVATED/SHOULDER PAIN EXAMS: CPT CODE: [id number] CT CHEST W/O CONTRAST 61002 HISTORY: Hypertension, shoulder pain. FINDINGS: Biapical mild [...] KWON(R)(CT); W CTDI: DLP: Trnscb Date/Time: 08/10/2009 (525) [email or web address] Orig Print D/T: S: 08/10/2009 (9926) PAGE 1 Signed Report - XR ABDOMEN AP/OBL/CONE 2008-04-21 14:04:00 N paulo: ESCOBARANA LUISA PERALTA [facility] : 1945 Age/S:62 /F [address] [place] [address] Unit#:[id number] Loc: [place] [address] Phys: Makayla Byrd MD Dis Date: PHONE #: [phone] Status: [facility] FAX #: [phone] Exam Date: 04/21/2008 Reason: ABD PAIN EXAMS: CPT CODE: [id number] XR ABDOMEN AP/OBL/CONE 30261 COMPARISON: 04/17/2008 FINDINGS: Nonspecific intestinal gas pattern. No organomegaly or mass. Bilateral pelvic calcifications consistent with phleboliths are unchanged. IMPRESSION: No acute abdominal findings . at 1406 Reported and signed by: Vikash Young M.D. CC: Makayla Byrd Technologist: Bia Chang RT(R),CT Trnscrpt Data: 04/21/2008 (5746) RAD.VR Orig Print D/T: S: 04/21/2008 (1189) PAGE 1 Signed Report - US ABDOMEN COMPLETE 2008-04-21 09:11:00 Name : MIRNA CODYN PERALTA [facility] : 1945 Age/S: 62 / F [facility] Unit #: [id number] Loc: [place] [address] Phys: Makayla Byrd MD Acct: [id number] Dis Date: Status: UNK PHONE #: [phone] Exam Date: 04/21/2008821 FAX #: [phone] Reason: ABDOMINAL PAIN EXAMS: CPT CODE: [id number] US ABDOMEN COMPLETE 73586 Reason for exam: Abdominal pain FINDINGS: The [...] M.D. CC: Makayla Byrd Technologist: CHUCKY ROSALES Trnneb Date/Time: 04/21/2008 (0913) RAD.VR Orig Print D/T: S: 04/21/2008 (0914) Probe: PAGE 1 Signed Report - XR ABDOMEN AP/OBL/CONE 2008-04-17 15:13:00 N paulo: ANA LUISA CODY [facility] : 1945 Age/S:62 /F [address] [facility] Unit#:[id number] Loc: [place] [address] Phys: Makayla Byrd MD Dis Date: PHONE #: [phone] Status: UNK FAX #: [phone] Exam Date: 04/17/2008 Reason: EPIGASTRIC ABDOMINAL PAIN EXAMS: CPT CODE: [id number] XR ABDOMEN AP/OBL/CONE 35130 The intestinal gas pattern is normal. Nonspecific pelvic calcifications are probably phleboliths. No organomegaly or mass or free air is present. Visualized lung bases are grossly clear. IMPRESSION: No acute abdominal findings. at 1514 Reported and signed by: Vikash Young M.D. CC: Makayla Byrd Technologist: Rachel Valentin RT(R),CT Trnscrpt Data: 04/17/2008 (1514) RAD.VR Orig Print D/T: S: 04/17/2008 (9405) PAGE 1 Signed Report - XR CHEST 2 V 2008-04-17 15:12:00 Name: ANA LUISA SINGH [facility] : 1945 Age/S:62 /F [address] [facility] Unit#:[id number] Loc: [place] [address] Phys: Makayla Byrd MD Dis Date: PHONE #: [phone] Status: [facility] FAX #: [phone] Exam Date: 04/17/2008 Reason: EPIGASTRIC ABDOMINAL PAIN EXAMS: CPT CODE: [id number] XR CHEST 2 V 87096 COMPARISON: none FINDINGS: Lungs and pleural spaces are grossly clear but mildly hyperinflated. Cardiomediastinal silhouette is within normal limits. Unremarkable bony thorax. IMPRESSION: Hyperinflated lungs. at 1512 Reported and signed by: Vikash Young M.D. CC: Makayla Byrd Technologist: Rachel Valentin RT(R),CT Trnscrpt Data: 04/17/2008 (1512) RAD.VR Orig Print D/T: S: 04/17/2008 (4923) PAGE 1 Signed Report - MRI UP JNT W/O CONT LT 2007-12-07 16:48:00 Pa tient Name: ANA LUISA CODY Unit No: [id number] EXAMS: CPT CODE: [id number] MRI UP JNT W/[place] [address] MRI OF THE LEFT SHOULDER, 12/07/2007: DIAGNOSIS: [...] of fluid seen within the joint space. [id number]/dd at 1239 Reported by: Anil Payton MD Signed by: María Elena Payton MD CC: Toney James MD Technologist: Karne Pepe(R) Transcribed D/ (0914) Nigel [facility] NAME: ANA LUISA CODY [address] [facility] PHYS: Toney Menjivar : 1945 AGE: 62 SEX: F [place], [place] [address] LOC: UNK PHONE #: [phone] EXAM DATE: 12/07/2007 [facility] FAX #: [phone] RAD #: [id number] D/C DT PAGE 1 Signed Report Patient Name: ANA LUISA CODY Unit No: [id number] EXAMS: CPT CODE: [id number] [place] JNT W/[place] [address] <Continued> Orig Print D/T: S: 12/11/2007 (0530) [facility] NAME: ANA LUISA CODY [address] [facility] PHYS: Toney Menjivar : 1945 AGE: 62 SEX: F [place], [place] [address] LOC: [place] PHONE #: [phone] EXAM DATE: 12/07/2007 [facility] FAX #: [phone] RAD #: [id number] D/C DT PAGE 2 Signed Report - [facility] 2004-07-17 09:27:00 FAX: Makayla Gutierrez MD [phone] [place]: St: [facility] FAX: Raymundo Gorman MD [phone] Name: ANA LUISA CODY [facility] : 1945 Age/S: 58/F [address] [facility] Unit #: [id number] Loc: [place] [address] Phys: Raymundo Madrigal MD Acct: [id number] Dis Date: [facility] PHONE #: [phone] Exam Date: 07/16/2004 1220 FAX #: [phone] Reason: ILATERAL EXAMS: CPT CODE: [id number] [place] [address] DICTATED: 07/17/04926 HISTORY: BILATERAL FILM SCREEN MAMMOGRAPHY, [...] Result Code: Bi-Rads 3 Follow-up: 12 months at 1031 Reported and signed by: Noel Pineda M.D. CC: Makayla Byrd; Raymundo Madrigal MD Technologist: RT SEBASTIÁN(Wili)(M) Trnscrd Date/Time/By: 07/17/2004 (4021) : By: Anastasia.[email or web address] Orig Print D/T: S: 07/19/2004 (9346) PAGE 1 Signed Report - [facility] 2003-01-30 12:52:00 FAX: Y Raymundo Madrigal MD [phone] [place]: St: UNK -- Name: ESCOBARANA LUISA KATHRYN [facility] : 1945 Age/S: 57/F [address] [facility] Unit #: [id number] Loc: [place] [address] Phys: Raymundo Madrigal MD Acct: [id number] Dis Date: Status: UNK PHONE #: [phone] Exam Date: 01/29/2003 09 FAX #: [phone] Reason: ILATERAL EXAMS: CPT CODE: [id number] [facility] [address] DICTATED: 01/30/03, 1252 HISTORY: BILATERAL FILM SCREEN [...] Result Code: Bi-Rads 3 Follow-up: 12 months //29362 at 1433 Reported and signed by: Noel Pineda M.D. CC: Raymundo Madrigal MD Technologist: TARUN LOWERY)(Mey) Trnscrd Date/Time/By: 01/30/2003 (1408) : By: Anastasia.[email or web address] Orig Print D/T: (9938) S: 01/31/2003 (1009) PAGE 1 Signed [facility] 2001-12-25 14:23:00 FAX: Y Raymundo Madrigal MD [phone] [place]: St: [facility] -- Name: ANA LUISA CODY PERALTA [facility] : 1945 Age/S: 56/F [address] [facility] Unit #: [id number] Loc: [place] [address] Phys: Raymundo Madrigal MD Acct: [id number] Dis Date: Status: UNK PHONE #: [phone] Exam Date: 12/25/2001 1423 FAX #: [phone] Reason: L EXAMS: CPT CODE: [id number] MAMMO[facility] UNI DICTATED: 12/25/01: 1503 HOURS HISTORY: LEFT BREAST CALCIFICATIONS LEFT UNILATERAL CONE COMPRESSION MAMMOGRAM, 12/25/01: CPT 19409 Magnification cone compression images of the left [...] Result Code: Bi-Rads 2 Follow-up: 12 months WC/cw/69550 at 0925 Reported and signed by: Vikash Young M.D. CC: Raymundo Madrigal MD Technologist: RT SEBASTIÁN(Wili)(Mey) Trnscrd Date/Time/By: 12/26/2001 (0710) : By: PADMINIW/[email or web address] PAGE 1 Signed Report - [facility] 2001-12-10 11:16:00 FAX: [place]: St: [facility] FAX: Makayla Gutierrez MD [phone] Name: ANA LUISA CODY PERALTA [facility] : 1945 Age/S: 56/F [address] [facility] Unit #: [id number] Loc: [place] [address] Phys: RAYMUNDO MARTI Acct: [id number] Dis Date: Status: UNK PHONE #: [phone] Exam Date: 12/10/2001 1116 FAX #: [phone] Reason: EXAMS: CPT CODE: [id number] [place] [address] DICTATED: 12/11/01; 1620 HOURS HISTORY: SCREENING MAMMOGRAM [...] 10%. Result Code: Bi-Rads 0 Follow-up: JORGE PUGH/erum/07380 at 1701 Reported and signed by: Elizabeth Yousif M.D. CC: Makayla Matos Technologist: RT SEBASTIÁN(Wili)(M) Trnscrd Date/Time/By: 12/12/2001 (1524) : By: RACHELE/Mirain PAGE 1 Signed Report MRI BRAIN WO [place] [address] Patient Name: JATINDER CODY MR #: [id number] : 1945 Age/Sex: 72/F Req #: [id number] Adm Physician: Ordered by: SERA TOBIAS DO Report #: [id number] Location: CARD Room/Bed: Procedure: [id number] MRI/MRI BRAIN WO Exam Date: Exam Time: [...] changes as detailed above. Signed by: Dr. Muna Rodriguez M.D. on 03/02/2018 3:57 PM Dictated By: MUNA RODRIGUEZ MD 2250 Transcribed By: BOB on 03/02/18 0828 COPY TO: SERA TOBIAS DO
[2020-06-07 17:08] LABS: BASOPHILS # (AUTO) 0.1 (0.0-0.1); BASOPHILS % 1.1 % (0.0-1.0); EOSINOPHILS # (AUTO) 0.2 (0.0-0.4); EOSINOPHILS % 2.4 % (0.0-6.0); HEMATOCRIT 43.5 % (34.2-44.1); HEMOGLOBIN 13.9 g/dL (12.0-16.0); LYMPHOCYTES # (AUTO) 3.3 (1.0-3.2); LYMPHOCYTES % 45.4 % (18.0-39.1); MEAN CORPUSCULAR HEMOGLOBIN 29.1 pg (28-32); MONOCYTES # (AUTO) 0.5 (0.2-0.8); MONOCYTES % 7.4 % (4.4-11.3); NEUTROPHILS # (AUTO) 3.1 (2.1-6.9); NEUTROPHILS % 43.4 % (38.7-80.0); PLATELET COUNT 293 x10e3/uL (140-360); RED BLOOD COUNT 4.78 x10e6/uL (3.6-5.1); RED CELL DISTRIBUTION WIDTH 14.7 % (11.7-14.4)
[2020-06-07 17:41] LABS: ALBUMIN 4.3 g/dL (3.5-5.0); ALBUMIN/GLOBULIN RATIO 1.4 (0.8-2.0); ANION GAP 17.1 mmol/L (8-16); CALCIUM 9.5 mg/dL (8.4-10.2); CREATININE, SERUM 1.35 mg/dL (0.57-1.11); POTASSIUM 4.1 mmol/L (3.5-5.1)
[2020-06-07 17:47] LABS: CREATINE KINASE MB 1.3 ng/mL (0-5.0)
[2020-06-07 18:08] VITALS: BP 158/92
[2020-06-07 18:25] VITALS: BP 158/92
[2020-06-07 18:34] VITALS: BP 158/92
--- NOTE | 2020-06-07 18:45 | NUR ---
Patient arrived to unit from ER via stretcher, in stable condition, no s/s of distress at this time. Patient able to make needs known. Bed locked and in lowest position, side rails up x3, alarm on, call light placed within reach. Patient instructed to call for assistance if needed, verbalized understanding. will cont to monitor.
[2020-06-07] MEDS ORDERED: METOPROLOL TARTRATE INJ 1 MG/ML VIAL IV PRN (19:15)
[2020-06-07] MEDS ORDERED: POLYETHYLENE GLYCOL 3350 17 GM PACK PO PRN (19:15)
[2020-06-07] MEDS ORDERED: ONDANSETRON HCL INJ 2MG/ML 2ML 2 MG/ML VIAL IV PRN (19:15)
[2020-06-07] MEDS ORDERED: ACETAMINOPHEN 325 MG TAB PO PRN (19:15)
[2020-06-07] MEDS ORDERED: TEMAZEPAM 7.5 MG CAP PO PRN (19:15)
--- NOTE | 2020-06-07 19:31 | NUR ---
report given to oncoming nurse . pt stable at this time .
[2020-06-07 20:00] VITALS: BP 146/76
[2020-06-07] MEDS ORDERED: LORAZEPAM INJ 2 MG/ML VIAL IV ONE (20:15)
--- NOTE | 2020-06-07 20:25 | NUR ---
Transported to radiology for MRI Brain WO.
[2020-06-07] MEDS ORDERED: ACETAMINOPHEN/CODEINE 300MG - 30MG TAB PO PRN (20:30)
--- NOTE | 2020-06-07 21:23 | Diagnostic Imaging Report ---
MRI BRAIN WO HISTORY: TIA COMPARISON: Head CT 06/07/2020 TECHNIQUE: Sagittal T2, axial T2, multiplanar T1, axial T2/FLAIR, axial gradient echo (or susceptibility weighted), and axial diffusion weighted MR images of the brain were obtained without contrast. Motion artifacts obscure some details. DISCUSSION: Scalp/bone marrow: Unremarkable. Brain sulci: Prominent. Ventricles: Compensatory dilatation. Extra-axial spaces: No masses or fluid collections. Parenchyma: Scattered T2/FLAIR hyperintense foci throughout the supratentorial white matter are likely chronic microvascular ischemic changes. Otherwise, no mass, hemorrhage, or acute vascular insults. Vessels: Normal flow voids in major arteries and veins. Sellar/Suprasellar region: No abnormalities. Craniocervical junction: No abnormalities. Incidental findings: Bilateral ocular lens replacement. IMPRESSION: 1. No acute intracranial abnormalities. 2. Mild supratentorial chronic microvascular ischemic change. 3. Mild generalized cerebral volume loss. Signed by: Dr. Niles Palomo M.D. on 06/07/2020 9:20 PM
[2020-06-07 23:01] VITALS: BP 146/76
[2020-06-08] VITALS: BP 106/61
[2020-06-08 04:00] VITALS: BP 122/84
--- NOTE | 2020-06-08 07:00 | NUR ---
PATIENT IS ALERT AND IN STABLE CONDITION WITH NO S/S OF RESPIRATORY DISTRESS. NO PAIN VOICED. TELEMETRY APPLIED. CALL LIGHT IS WITHIN REACH, PATIENT INSTRUCTED TO CALL FOR ASSISTANCE NEEDED.
[2020-06-08 07:56] VITALS: BP 139/85
[2020-06-08 08:04] LABS: CLARITY,URINE CLEAR (CLEAR); COLOR,URINE YELLOW (YELLOW); LEUKOCYTE ESTERASE ,URINE NEGATIVE (NEGATIVE); NITRITE,URINE NEGATIVE (NEGATIVE); PROTEIN,URINE DIPSTICK NEGATIVE (NEGATIVE)
[2020-06-08 08:05] LABS: BACTERIA,URINE RARE /HPF; BILIRUBIN,URINE NEGATIVE (NEGATIVE); EPITHELIAL CELLS,URINE FEW /LPF; KETONES,URINE NEGATIVE (NEGATIVE); RBC,URINE 0-5 /HPF (0-5); URINE UROBILINOGEN 0.2 mg/dL (0.2 - 1); WBC,URINE (MAN) 0-5 /HPF (0-5)
[2020-06-08] MEDS: FAMOTIDINE 20 MG/2 ML VIAL IV SCH ×2 (08:56→16:09)
[2020-06-08] MEDS: DOCUSATE SODIUM 100 MG CAP PO SCH ×2 (08:56→16:09)
[2020-06-08] MEDS ORDERED: LIPITOR10 MG PO (08:58)
[2020-06-08] MEDS ORDERED: OMEPRAZOLE20 M2 PO (08:58)
[2020-06-08] MEDS ORDERED: ASPIRIN 81 MG CHEW TAB PO SCH (09:00)
[2020-06-08 09:10] VITALS: BP 139/85
[2020-06-08 09:33] LABS: BASOPHILS # (AUTO) 0.1 (0.0-0.1); BASOPHILS % 0.7 % (0.0-1.0); EOSINOPHILS # (AUTO) 0.2 (0.0-0.4); EOSINOPHILS % 3.4 % (0.0-6.0); HEMATOCRIT 43.5 % (34.2-44.1); HEMOGLOBIN 13.8 g/dL (12.0-16.0); LYMPHOCYTES % 45.1 % (18.0-39.1); MEAN CORPUSCULAR HEMOGLOBIN 29.1 pg (28-32); MEAN CORPUSCULAR HGB CONC 31.7 g/dL (31-35); MEAN CORPUSCULAR VOLUME 91.8 fL (81-99); MONOCYTES # (AUTO) 0.5 (0.2-0.8); MONOCYTES % 7.2 % (4.4-11.3); NEUTROPHILS # (AUTO) 2.9 (2.1-6.9); NEUTROPHILS % 43.3 % (38.7-80.0); PLATELET COUNT 246 x10e3/uL (140-360); RED BLOOD COUNT 4.74 x10e6/uL (3.6-5.1); RED CELL DISTRIBUTION WIDTH 14.8 % (11.7-14.4)
[2020-06-08 09:56] LABS: ALBUMIN 3.6 g/dL (3.5-5.0); ALBUMIN/GLOBULIN RATIO 1.2 (0.8-2.0); ANION GAP 15.7 mmol/L (8-16); CALCIUM 9.1 mg/dL (8.4-10.2); CHOL/HDL RATIO 2.6 (3.0-3.6); CREATININE, SERUM 1.21 mg/dL (0.57-1.11); MAGNESIUM 1.9 MG/DL (1.3-2.1); PHOSPHORUS 3.2 MG/DL (2.3-4.7); POTASSIUM 3.7 mmol/L (3.5-5.1)
[2020-06-08 10:16] LABS: THYROID STIMULATING HORMONE 1.375 uIU/mL (0.350-4.940)
[2020-06-08 12:03] VITALS: BP 133/90
--- NOTE | 2020-06-08 14:17 | Consultation ---
DATE OF CONSULTATION: Neurology Consultation HISTORY OF PRESENT ILLNESS: A 74-year-old female comes in for her transient confusion, lasting about minutes, disorientation at home, brought in by her family despite her not refusal, but generally to come in. She had no focal neurological deficits, however, she was confused 4 or 5 minutes according to her at home when she found herself sleeping in her bed and her friend, who is with her said that she and she was not aware of that. After about 5 to 10 minutes conversation, she became more . She does feel that she may have been exposed to too much heat. She never developed any focal neurological deficits . REVIEW OF SYSTEMS: A 14-point review of systems is entirely negative. She reports she is very healthy. PHYSICAL EXAMINATION: VITAL SIGNS: Stable. Her temperature is 97.1, heart rate is 86 and regular, blood pressure is 141/86. HEENT: Extraocular muscles intact. Face symmetric. Tongue is midline. Speech is clear. She is oriented x3. She recalls 3 objects in 5 minutes . Her strength is 5/5. Reflexes are symmetric 1/4. ABDOMEN: Soft. CARDIOVASCULAR: Regular rate and rhythm. NEUROLOGICAL: No ataxia, tremors, or weakness or pronator drift noted on exam. Toes are downgoing bilaterally. IMAGING: Normal. ASSESSMENT AND PLAN: The patient comes in with transient disorientation, possibly related to acute metabolic encephalopathy, now completely resolved. No evidence of stroke or focal neurologic deficits. She is already on aspirin and statin. However, I do not think this is a transient ischemic attack. Imaging is reassuring. I would . MARINA ROMERO MD RR/MODL /[id number]
[2020-06-08 16:02] VITALS: BP 138/92
--- NOTE | 2020-06-08 18:10 | NUR ---
PATIENT DISCHARGE HOME- PATIENT OFF THE UNIT AT 1810 PER WHEELCHAIR ACCOMPANIED BY PCT TO THE FRONT LOBBY. PATIENT IN STABLE CONDITION WITH NO S/S OF RESPIRATORY DISTRESS. NO PAIN VOICED. IV REMOVED WITH TIP INTACT. DISCHARGE TEACHING AND INSTRUCTIONS GIVEN TO THE PATIENT. THE PATIENT IS AWARE TO F/U WITH HER PCP IN 1-2 WEEK AND NEURO IN 6 WEEKS. ALL PERSONAL ITEMS WERE TAKEN WITH THE PATIENT.
--- NOTE | 2020-06-09 03:15 | Discharge Summary ---
PAST MEDICAL HISTORY: Hyperlipidemia and GERD. PAST SURGICAL HISTORY: Tubal ligation, hysterectomy, and bladder suspension. FAMILY HISTORY: Noncontributory. SOCIAL HISTORY: Noncontributory. ALLERGIES: IODINE, PENICILLIN. HOSPITAL COURSE: This is a 74-year-old female with history of hyperlipidemia and GERD, got admitted from home with complaints of feeling disorientation at home DICTATION ENDS ABRUPTLY. Dictated by Phuong Dave, INTERNATIONAL AFFAIRS VICE PRESIDENT MD PARISA Driver/MADHAVI /[id number]
--- NOTE | 2020-06-09 03:15 | Discharge Summary ---
ADMISSION DIAGNOSIS: TIA. PAST MEDICAL HISTORY: Hyperlipidemia and GERD. PAST SURGICAL HISTORY: Tubal ligation, hysterectomy, and bladder suspension. FAMILY HISTORY: Noncontributory. SOCIAL HISTORY: Noncontributory. ALLERGIES: IODINE AND PENICILLIN. HOSPITAL COURSE: This is a 74-year-old female with history of hyperlipidemia and GERD, who got admitted from home with complaints of feeling disorientation for 4-5 minutes. She had no focal neurological deficit, just was confused for a few minutes. According to patient report she was cleaning her home without AC and feels like she got exposed to too much of heat. Her CT brain on arrival is with no acute findings and her MRI of the brain is negative. The patient also got evaluated by Neurology, who has cleared for her to discharge today home. Dictated by Phuong Dave NP MD PARISA Drievr/MADHAVI /[id number]
== END 2020-06-08 18:10 | disposition home or self-care (01) ==
LOC: ER 16:31 → ERHOLD 16:41 → MED/SURG3 17:45
PROVIDERS: ADMIT Internal Medicine; ATTEND Internal Medicine
DX: R41.0 Disorientation, unspecified (principal); K21.9 Gastro-esophageal reflux disease without esophagitis; E78.5 Hyperlipidemia, unspecified; Z11.59 Encounter for screening for other viral diseases
CPT/HCPCS: 36415 ×2; 70450; 70551; 80053 ×2; 80061; 81001; 82550; 82553; 83036; 83735; 84100; 84443; 84484; 85025 ×2; 92526; 92610; 93306; 97139; G0378 ×2; J2060; U0002

== ENCOUNTER 2022-01-01 12:22 | Emergency (ER) | payer MEDICARE, BC ==
[~2022-01-01] VITALS: Ht 160 cm; Wt 63.5 kg
[~2022-01-01 12:22] MED LIST: LIPITOR10 MG PO; OMEPRAZOLE20 M2 PO
[2022-01-01 13:09] LABS: BASOPHILS % 0.6 % (0.0-1.0); EOSINOPHILS # (AUTO) 0.2 (0.0-0.4); EOSINOPHILS % 2.3 % (0.0-6.0); HEMATOCRIT 43.9 % (34.2-44.1); HEMOGLOBIN 14.3 g/dL (12.0-16.0); LYMPHOCYTES % 43.2 % (18.0-39.1); MEAN CORPUSCULAR HEMOGLOBIN 30.1 pg (28-32); MEAN CORPUSCULAR HGB CONC 32.6 g/dL (31-35); MEAN CORPUSCULAR VOLUME 92.4 fL (81-99); MONOCYTES # (AUTO) 0.5 (0.2-0.8); MONOCYTES % 6.8 % (4.4-11.3); NEUTROPHILS # (AUTO) 3.3 (2.1-6.9); NEUTROPHILS % 46.8 % (38.7-80.0); PLATELET COUNT 301 x10e3/uL (140-360); RED BLOOD COUNT 4.75 x10e6/uL (3.6-5.1); RED CELL DISTRIBUTION WIDTH 14.2 % (11.7-14.4)
[2022-01-01 13:17] LABS: INR 0.85; PROTHROMBIN TIME 12.4 seconds (11.9-14.5)
[2022-01-01 13:18] LABS: PARTIAL THROMBOPLASTIN TIME 26.6 seconds (23.8-35.5)
[2022-01-01 13:27] LABS: ALBUMIN 3.9 g/dL (3.5-5.0); ALBUMIN/GLOBULIN RATIO 1.1 (0.8-2.0); ANION GAP 13.1 mmol/L (8-16); CALCIUM 9.6 mg/dL (8.4-10.2); CREATININE, SERUM 1.27 mg/dL (0.57-1.11); MAGNESIUM 1.8 MG/DL (1.3-2.1); POTASSIUM 4.1 mmol/L (3.5-5.1)
[2022-01-01 13:33] LABS: CREATINE KINASE MB 0.9 ng/mL (0-5.0)
[2022-01-01] MEDS ORDERED: ASPIRIN 81 MG CHEW TAB PO STA (13:44)
[2022-01-01 15:00] VITALS: BP 154/80
== END 2022-01-01 14:00 | disposition home or self-care (01) ==
LOC: ER 12:44
DX: R20.2 Paresthesia of skin (principal); E78.5 Hyperlipidemia, unspecified
CPT/HCPCS: 36415; 70450; 80053; 82550; 82553; 83735; 84484; 85025; 85610; 85730; 93005; 99284

== ENCOUNTER 2022-03-01 13:47 | Emergency (ER) | payer MEDICARE, BC ==
[~2022-03-01] VITALS: Ht 160 cm; Wt 63.5 kg
[2022-03-01 14:22] LABS: BASOPHILS # (AUTO) 0.1 (0.0-0.1); BASOPHILS % 0.9 % (0.0-1.0); EOSINOPHILS # (AUTO) 0.2 (0.0-0.4); EOSINOPHILS % 2.7 % (0.0-6.0); HEMATOCRIT 45.6 % (34.2-44.1); HEMOGLOBIN 14.4 g/dL (12.0-16.0); LYMPHOCYTES # (AUTO) 3.9 (1.0-3.2); LYMPHOCYTES % 49.5 % (18.0-39.1); MEAN CORPUSCULAR HEMOGLOBIN 29.4 pg (28-32); MEAN CORPUSCULAR HGB CONC 31.6 g/dL (31-35); MEAN CORPUSCULAR VOLUME 93.1 fL (81-99); MONOCYTES # (AUTO) 0.4 (0.2-0.8); MONOCYTES % 5.5 % (4.4-11.3); NEUTROPHILS # (AUTO) 3.2 (2.1-6.9); NEUTROPHILS % 41.3 % (38.7-80.0); PLATELET COUNT 309 x10e3/uL (140-360); RED CELL DISTRIBUTION WIDTH 14.1 % (11.7-14.4)
[2022-03-01 14:26] LABS: INR 0.8; PROTHROMBIN TIME 11.9 seconds (11.9-14.5)
[2022-03-01 14:27] LABS: PARTIAL THROMBOPLASTIN TIME 27.3 seconds (23.8-35.5)
[2022-03-01 14:33] LABS: ALANINE AMINOTRANSFERASE 16 IU/L (0-55); ALBUMIN 3.9 g/dL (3.5-5.0); ALBUMIN/GLOBULIN RATIO 1.1 (0.8-2.0); ALKALINE PHOSPHATASE 99 IU/L (40-150); BLOOD UREA NITROGEN 15 mg/dL (7-26); BUN/CREATININE RATIO 11 (6-25); CALCIUM 9.8 mg/dL (8.4-10.2); CARBON DIOXIDE 28 mmol/L (22-29); CHLORIDE 107 mmol/L (98-107); CREATINE KINASE 76 IU/L (29-168); CREATININE, SERUM 1.31 mg/dL (0.57-1.11); EST GLOMERULAR FILTRATION RATE 39 ML/MIN (60-); GLUCOSE 104 mg/dL (74-118); SODIUM 144 mmol/L (136-145)
== END 2022-03-01 15:43 | disposition home or self-care (01) ==
LOC: ER 13:55
DX: R20.2 Paresthesia of skin (principal); E78.5 Hyperlipidemia, unspecified
CPT/HCPCS: 36415; 80053; 82550; 82553; 84484; 85025; 85610; 85730; 93005; 99284